=== PATIENT | female | born 1980 | race Caucasian/White ===

== ENCOUNTER 2018-09-16 14:19 | Emergency (ER) | payer MEDICAID ==
[~2018-09-16] VITALS: Ht 165.1 cm; Wt 77.9 kg
[2018-09-16 14:33] VITALS: BP 121/83; PULSE 102; RESP 18; Ht 165.1 cm; Wt 77.9 kg
--- NOTE | 2018-09-16 19:44 | ERD ---
ER Documentation Chief Complaint Chief Complaint fr clinic 6wks vag bleeding [id number], HPI History of Present Illness: 37-year-old female who denies a past medical history coming in today with complaint of vaginal bleeding that occurred approximately 30 minutes prior to arrival. Patient reports consisting c onsistency appears to be like when her menstrual cycle start, with a pinkish color. Patient is G5, P2. Past surgical history of a ovarian cyst removal. Associated symptoms include mild abdominal cramping. At home pharmacological/nonpharmacological treatment for symptoms: Denies Denies social concerns; Denies recent foreign travel ROS All systems reviewed and are negative except as per history of present illness. PMhx/Soc Hx Alcohol Use: No Hx Substance Use: No FmHx Family History: diabetes Physical Exam Vitals Vital Signs Date Temp Pulse Resp B/P (MAP) Pulse Ox O2 O2 Flow FiO2 Time Delivery Rate 09/16/18 98.2 102 18 121/83 98 14:33 (96) Physical Exam Const: No acute distress Head: Atraumatic Eyes: Normal Conjunctiva ENT: Normal External Ears, Nose and Mouth. Neck: Full range of motion. No meningismus. Resp: Clear to auscultation bilaterally Cardio: Regular rate and rhythm, no murmurs Abd: Soft, tenderness to palpation to right lower quadrant, suprapubic, left lower quadrant, non distended. Normal bowel sounds Skin: No petechiae or rashes Back: No midline or flank tenderness Ext: No cyanosis, or edema Neur: Awake and alert Psych: Normal Mood and Affect Result Diagram: 09/16/18 1602 Results 24 hrs Laboratory Tests Test 09/16/18 16:02 White Blood Count 10.4 10^3/ul Red Blood Count 4.33 10^6/ul Hemoglobin 13.2 g/dl Hematocrit 38.6 % Mean Corpuscular Volume 89.1 fl Mean Corpuscular Hemoglobin 30.5 pg Mean Corpuscular Hemoglobin Concent 34.2 g/dl Red Cell Distribution Width 12.9 % Platelet Count 327 10^3/UL Mean Platelet Volume 8.9 fl Immature Granulocytes % 0.200 % Neutrophils % 64.3 % Lymphocytes % 27.6 % Monocytes % 6.7 % Eosinophils % 1.0 % Basophils % 0.2 % Nucleated Red Blood Cells % 0.0 /100WBC Immature Granulocytes # 0.020 10^3/ul Neutrophils # 6.7 10^3/ul Lymphocytes # 2.9 10^3/ul Monocytes # 0.7 10^3/ul Eosinophils # 0.1 10^3/ul Basophils # 0.0 10^3/ul Nucleated Red Blood Cells # 0.0 10^3/ul Urine Color YELLOW Urine Clarity CLOUDY Urine pH 7.0 Urine Specific [place] 1.013 Urine Ketones NEGATIVE mg/dL Urine Nitrite NEGATIVE mg/dL Urine Bilirubin NEGATIVE mg/dL Urine Urobilinogen NEGATIVE mg/dL Urine Leukocyte Esterase NEGATIVE Yecenia/ul Urine Microscopic RBC 27 /HPF Urine Microscopic WBC 3 /HPF Urine Squamous Epithelial Cells MODERATE /HPF Urine Amorphous Crystals MANY /HPF Urine Bacteria FEW /HPF Urine Hemoglobin 3+ mg/dL Urine Glucose NEGATIVE mg/dL Urine Total Protein NEGATIVE mg/dl Beta HCG, Quantitative 44552.0 mIU/ml Procedures/MDM ED course includes a thorough examination and history. Medications: Imaging: OB transvaginal and abdominal ultrasound Labs: CBC, Rh, urinalysis, beta quantitative Low suspicion for life-threatening medical emergency. Low suspicion for acute abdominal emergency. Low suspicion for SLEEP LAB TECHNICIAN emergency that requires hospitalization or immediate surgical intervention. Otherwise healthy patient presenting with constellation of symptoms likely representing uncomplicated subchorionic hemorrhage secondary to vaginal bleeding during as characterized by history, physical exam findings, lab findings. CBC: no e/o of systemic infection or severe anemia. Beta quantitative 53K. Rh O+. Urinalysis negative for infection, 27 RBCs, 2+ hemoglobin. Ultrasound results showing: IMPRESSION: Single live intrauterine with an estimated gestational age of 7 weeks 0 days, based on ultrasound measurements. Estimated date of delivery is 05/05/2018. Small subchorionic hemorrhage. Possible 1.8 cm posterior intramural fibroid. RPTAT: [facility] Physician Deng Date Time Electronically viewed and signed by Physician Deng on 09/16/2018 16:41 Patient reassessment 1805: Patient hemodynamically stable. Labs and imaging results discussed. No respiratory distress, otherwise relatively well appearing and nontoxic. Disposition given. Patient educated on diagnoses, prescriptions, follow-up care, return precautions. Strict return precautions given for worsening condition; questions answered discharge. Patient verbalizes understanding of plan of care as well as discharge instructions. Disposition for discharge with followup in 2 days with PCP/clinic. Departure Diagnosis: Primary Impression: Subchorionic hemorrhage in first trimester Fetus number: single or unspecified fetus Qualified Codes: O41.8X10 - Other specified disorders of amniotic fluid and membranes, first trimester, n ot applicable or unspecified; O46.8X1 - Other antepartum hemorrhage, first trimester Additional Impression: Vaginal bleeding in patient at less than 20 weeks ges... Condition: Stable Patient Instructions: Bleeding During Early Referrals: COMM[facility] YOU HAVE RECEIVED A MEDICAL SCREENING EXAM AND THE RESULTS INDICATE THAT YOU DO NOT HAVE A CONDITION THAT REQUIRES URGENT TREATMENT IN THE EMERGENCY DEPARTMENT. FURTHER EVALUATION AND TREATMENT OF YOUR CONDITION CAN WAIT UNTIL YOU ARE SEEN IN YOUR DOCTORS OFFICE WITHIN THE NEXT 1-2 DAYS. IT IS YOUR RESPONSIBILITY TO MAKE AN APPOINTMENT FOR FOLOW-UP CARE. IF YOU HAVE A PRIMARY DOCTOR --you should call your primary doctor and schedule an appointment IF YOU DO NOT HAVE A PRIMARY DOCTOR YOU CAN CALL OUR PHYSICIAN REFERRAL HOTLINE AT IF YOU CAN NOT AFFORD TO SEE A PHYSICIAN YOU CAN CHOSE FROM THE FOLLOWING COM [facility] [address] [facility]. [facility] [address] [facility] [address] [facility] [address] [facility] [address] [facility]. [facility]. [address] [facility]. [facility] YOU HAVE RECEIVED A MEDICAL SCREENING EXAM AND THE RESULTS INDICATE THAT YOU DO NOT HAVE A CONDITION THAT REQUIRES URGENT TREATMENT IN THE EMERGENCY DEPARTMENT. FURTHER EVALUATION AND TREATMENT OF YOUR CONDITION CAN WAIT UNTIL YOU ARE SEEN IN YOUR DOCTORS OFFICE WITHIN THE NEXT 1-2 DAYS. IT IS YOUR RESPONSIBILITY TO MAKE AN APPOINTMENT FOR FOLOW-UP CARE. IF YOU HAVE A PRIMARY DOCTOR --you should call your primary doctor and schedule and appointment IF YOU DO NOT HAVE A PRIMARY DOCTOR YOU CAN CALL OUR PHYSICIAN REFERRAL HOTLINE AT . IF YOU CAN NOT AFFORD TO SEE A PHYSICIAN YOU CAN CHOSE FROM THE FOLLOWING [facility] INSTITUTIONS: [facility] [address] [place] [address] [facility] [address] [place] [address] [facility] [address] [place] [address] SLEEP LAB TECHNIC[place] [address] [facility] [address] [place] [address] OFFICE FAX , [facility] [address] [place], [place] [id number] DR. GARCESFORMERLY [facility] [address] [place] [address] DR BRADLEY, [facility] [address] [facility], [facility] 707, [facility] [address] [address] [facility] [address] [place] [address] [facility] [address] [place] [address] [address] [facility] [address] - DULCE PATIÑO [address] [facility]. [address], [facility] [address] [address] PICHARDO, FABIEN [address] [facility]. [address], [facility] [address] [address] [address] [place], [place] [id number] Additional Instructions: Thank you very much for allowing us to participate in your care. Your health and safety is our top priority at [facility]. It is important to read all discharge instructions and education provided in your discharge packet. Call your primary care doctor TOMORROW for an appointment during the next 2-4 days and bring all the information. If the symptoms get worse and your provider is unavailable, return to the Emergency Department immediately. AZRA LANDEROS NP Sep 16, 2018 19:44
== END 2018-09-16 18:08 | disposition home or self-care (01) ==
LOC: FTE 14:19
DX: O41.8X10 Other specified disorders of amniotic fluid and membranes, first trimester, not applicable or unspecified (principal); O46.8X1 Other antepartum hemorrhage, first trimester; R10.2 Pelvic and perineal pain; Z3A.01 Less than 8 weeks gestation of pregnancy
CPT/HCPCS: 76801; 76817; 81001; 84702; 85025; 86900; 86901; Z7502

== ENCOUNTER 2018-10-12 21:02 | Emergency (ER) | payer MEDICAID ==
[~2018-10-12] VITALS: Ht 160 cm; Wt 79.0 kg
[2018-10-12 21:06] VITALS: Ht 160 cm; Wt 79.0 kg
[2018-10-12] MEDS ORDERED: ACETAMINOPHEN 500 MG TAB PO STA (22:41)
[2018-10-12] MEDS ORDERED: SOD CHLORIDE 0.9% 1,000 ML IV STA (22:41)
[2018-10-13] MEDS ORDERED: ACET325T33 PO (00:22)
[2018-10-13] MEDS ORDERED: CEPH-443 PO (00:22)
--- NOTE | 2018-10-13 00:34 | ERD ---
ER Documentation Chief Complaint Chief Complaint DIZZINESS, 12 WEEKS PG HPI History of Present Illness: 37-year-old female who denies a past medical history coming in today with complaint of dizziness as well as pelvic pain. Patient reports being approximately 12 weeks . Patient with suprapubic pain. Denies dysuria or any other gastrointestinal or genitourinary symptoms. At home pharmacological/nonpharmacological treatment for symptoms: Denies Denies social concerns; Denies recent foreign travel ROS All systems reviewed and are negative except as per history of present illness. Medications Home Meds Active Scripts Meclizine Hcl* (Meclizine Hcl*) 25 Mg Tablet, 25 MG PO Q8H PRN for DIZZINESS, #30 TAB Prov:AZRA LANDEROS V SOCIAL SCIENTIST 10/13/18 Cephalexin* (Keflex*) 500 Mg Capsule, 500 MG PO TID for urine infection for 7 Days, CAP Prov:AZRA LANDEROS V SOCIAL SCIENTIST 10/13/18 Acetaminophen* (Tylenol*) 325 Mg Tablet, 2 TAB PO Q6 PRN for PAIN AND OR ELEVATED TEMP, #30 TAB Prov:AZRA LANDEROS V SOCIAL SCIENTIST 10/13/18 Allergies Allergies: Coded Allergies: No Known Allergy (Unverified , 10/12/18) PMhx/Soc Medical and Surgical Hx: pt denies Medical Hx History of Surgery: Yes (right ovary cyst) Anesthesia Reaction: No Hx Alcohol Use: No Hx Substance Use: No Hx Tobacco Use: No Smoking Status: Never smoker FmHx Family History: diabetes Physical Exam Vitals Vital Signs Date Temp Pulse Resp B/P (MAP) Pulse Ox O2 O2 Flow FiO2 Time Delivery Rate 10/12/18 99.2 109 18 127/86 98 21:06 (100) Physical Exam Const: No acute distress, afebrile Head: Atraumatic Eyes: Normal Conjunctiva ENT: Normal External Ears, Nose and Mouth. Neck: Full range of motion. No meningismus. Resp: Clear to auscultation bilaterally Cardio: Regular rate and rhythm, no murmurs Abd: Soft, suprapubic tenderness, non distended. No guarding, no masses, no rigidity. Palpable fundus. Skin: No petechiae or rashes Back: No midline or flank tenderness Ext: No cyanosis, or edema Neur: Awake and alert x3, speaking in clear sentences, no focal deficits or facial asymmetry Psych: Normal Mood and Affect Result Diagram: 10/12/18 9186 Results 24 hrs Laboratory Tests Test 10/12/18 22:52 White Blood Count 7.9 10^3/ul Red Blood Count 4.20 10^6/ul Hemoglobin 12.7 g/dl Hematocrit 37.6 % Mean Corpuscular Volume 89.5 fl Mean Corpuscular Hemoglobin 30.2 pg Mean Corpuscular Hemoglobin Concent 33.8 g/dl Red Cell Distribution Width 13.1 % Platelet Count 330 10^3/UL Mean Platelet Volume 8.8 fl Immature Granulocytes % 0.100 % Neutrophils % 62.6 % Lymphocytes % 28.7 % Monocytes % 7.2 % Eosinophils % 1.1 % Basophils % 0.3 % Nucleated Red Blood Cells % 0.0 /100WBC Immature Granulocytes # 0.010 10^3/ul Neutrophils # 4.9 10^3/ul Lymphocytes # 2.3 10^3/ul Monocytes # 0.6 10^3/ul Eosinophils # 0.1 10^3/ul Basophils # 0.0 10^3/ul Nucleated Red Blood Cells # 0.0 10^3/ul Urine Color YELLOW Urine Clarity TURBID Urine pH 7.0 Urine Specific [place] 1.018 Urine Ketones TRACE mg/dL Urine Nitrite NEGATIVE mg/dL Urine Bilirubin NEGATIVE mg/dL Urine Urobilinogen NEGATIVE mg/dL Urine Leukocyte Esterase NEGATIVE [place]/ul Urine Microscopic RBC 6 /HPF Urine Microscopic WBC 12 /HPF Urine Amorphous Crystals MODERATE /HPF Urine Bacteria FEW /HPF Urine Hemoglobin NEGATIVE mg/dL Urine Glucose 1+ mg/dL Urine Total Protein NEGATIVE mg/dl Beta HCG, Quantitative 19888.0 mIU/ml Current Medications Medications Dose Sig/Alexys Start Time Status Last (Trade) Ordered Route PRN Stop Time Admin Dose Reason Admin Sodium 1,000 ml @ Q1H STAT 10/12/18 DC 10/12/18 Chloride 1,000 mls/hr IV 22:41 10/12/18 22:54 23:40 1,000 mg ONCE STAT 10/12/18 DC 10/12/18 Acetaminophen PO 22:41 10/12/18 22:57 (Tylenol 22:42 Tab) Meclizine 25 mg ONCE ONCE 10/13/18 HCl PO 01:00 10/13/18 (Antivert) 01:01 Procedures/MDM ED COURSE: ED course includes a thorough examination and history. The patient was stable throughout ED course. I kept the patient and/or family informed of laboratory and diagnostic imaging results throughout the ED course. LABS: CBC: no e/o of systemic infection or severe anemia. Beta quantitative 69,452 Urinalysis positive for trace ketones, 12 WBCs, 6 RBCs, few bacteria MEDICATIONS GIVEN IN ER: Acetaminophen Patient tolerated medication well with no adverse reactions. Patient reported improvement in pain. DIAGNOSTIC IMAGING: Read by radiologist. IMPRESSION: Single live intrauterine with an estimated gestational age of 11 weeks and 3 days, based on ultrasound measurements. Moderate area of subchorionic hemorrhage. Close follow-up is recommended. .Sky Hoffman MD, MD Date Time Electronically viewed and signed by .Sky Hoffman MD, MD on 10/12/2018 23:41 PROCEDURES: None. MEDICAL DECISION MAKING: Low suspicion for life-threatening medical emergency. Low suspicion for acute abdominal emergency. Low suspicion for infectious process that requires IV or IM antibiotics. Low suspicion for OB emergency that requires immediate hospitalization. Otherwise healthy patient presenting with constellation of symptoms likely representing dizziness likely related to tachycardia, pelvic pain, subchorionic hemorrhage, urinary tract infection as characterized by history, physical exam findings, imaging findings, lab findings. Patient reassessment @ 0033: Dizziness decreased. Will order meclizine for dizziness. Pain decreased acetaminophen. Results discussed. Patient verbalized understanding of close follow-up due to her chronic hemorrhage. Patient hemodynamically stable. No respiratory distress, otherwise relatively well appearing and nontoxic. Disposition given. Patient educated on diagnoses, prescriptions, follow-up care, return precautions. Strict return precautions given for worsening condition; questions answered discharge. Patient verbalizes understanding of discharge instructions. PRESCRIPTIONS FOR HOME: Cephalexin, acetaminophen, meclizine DISPOSITION: DISCHARGE At this time, patient is stable for discharge and outpatient management. I have instructed the patient to follow-up with his/her primary care physician in 1-2 days. I have discussed with the patient the possibility of needing to see a specialist for further workup and imaging studies if symptoms persist. I have instructed the patient to promptly return to the ER for any new or worsening symptoms including increased pain, fever, nausea, vomiting, weakness or LOC. The patient and/or family expressed understanding of and agreement with this plan. All questions were answered. Home care instructions were provided. DISCLAIMER: Inadvertent spelling and grammatical errors are likely due to EHR/dictation software use and do not reflect on the overall quality of patient care. Also, please note that the electronic time recorded on this note does not necessarily reflect the actual time of the patient encounter. Departure Diagnosis: Primary Impression: Dizziness Additional Impressions: Sinus tachycardia by electrocardiography Pelvic pain in Subchorionic hemorrhage Condition: Stable Patient Instructions: Urinary Tract Infections in Women, Dizziness, Unk Cause, Pelvic Pain In : Unclear (2-3 Trimester) Referrals: [facility] YOU HAVE RECEIVED A MEDICAL SCREENING EXAM AND THE RESULTS INDICATE THAT YOU DO NOT HAVE A CONDITION THAT REQUIRES URGENT TREATMENT IN THE EMERGENCY DEPARTMENT. FURTHER EVALUATION AND TREATMENT OF YOUR CONDITION CAN WAIT UNTIL YOU ARE SEEN IN YOUR DOCTORS OFFICE WITHIN THE NEXT 1-2 DAYS. IT IS YOUR RESPONSIBILITY TO MAKE AN APPOINTMENT FOR FOLOW-UP CARE. IF YOU HAVE A PRIMARY DOCTOR --you should call your primary doctor and schedule an appointment IF YOU DO NOT HAVE A PRIMARY DOCTOR YOU CAN CALL OUR PHYSICIAN REFERRAL HOTLINE AT IF YOU CAN NOT AFFORD TO SEE A PHYSICIAN YOU CAN CHOSE FROM THE FOLLOWING [facility] [address] [facility]. [facility] [address] [facility]. [facility] [address] [facility]. [facility] [address] [facility] [address] [facility]. [facility]. [address] [facility]. [facility] YOU HAVE RECEIVED A MEDICAL SCREENING EXAM AND THE RESULTS INDICATE THAT YOU DO NOT HAVE A CONDITION THAT REQUIRES URGENT TREATMENT IN THE EMERGENCY DEPARTMENT. FURTHER EVALUATION AND TREATMENT OF YOUR CONDITION CAN WAIT UNTIL YOU ARE SEEN IN YOUR DOCTORS OFFICE WITHIN THE NEXT 1-2 DAYS. IT IS YOUR RESPONSIBILITY TO MAKE AN APPOINTMENT FOR FOLOW-UP CARE. IF YOU HAVE A PRIMARY DOCTOR --you should call your primary doctor and schedule and appointment IF YOU DO NOT HAVE A PRIMARY DOCTOR YOU CAN CALL OUR PHYSICIAN REFERRAL HOTLINE AT . IF YOU CAN NOT AFFORD TO SEE A PHYSICIAN YOU CAN CHOSE FROM THE FOLLOWING [facility] INSTITUTIONS: [facility] [address] [place] [address] [facility] [address] [place] [address] [facility] [address] [place] [address] Additional Instructions: Thank you very much for allowing us to participate in your care. Your health and safety is our top priority at [facility]. It is important to read all discharge instructions and education provided in your discharge packet. Call your primary care doctor TOMORROW for an appointment during the next 2-4 days and bring all the information and medications prescribed. Have prescriptions filled and follow precisely the directions on the label. -Cephalexin is an antibiotic; take this medication every day as listed on your prescription. You must complete the entire course of treatment that is listed on your prescription this is very important because it takes a certain number of days to kill the bacteria that is causing the infection. --Acetaminophen as a medication for pain and/or fever. Take this medication as needed for mild to moderate pain. This medication will not cause drowsiness. Acetaminophen is safe during . If the symptoms get worse and your provider is unavailable, return to the Emergency Department immediately. AZRA LANDEROS NP Oct 13, 2018 00:34
[2018-10-13] MEDS ORDERED: MECL-77 PO (00:41)
[2018-10-13] MEDS ORDERED: MECLIZINE 12.5 MG TAB PO ONE (01:00)
[2018-10-13 01:10] VITALS: BP 106/74; PULSE 80; RESP 20
== END 2018-10-13 01:31 | disposition home or self-care (01) ==
LOC: FTE 21:02
DX: O26.891 Other specified pregnancy related conditions, first trimester (principal); R00.0 Tachycardia, unspecified; R42 Dizziness and giddiness; O46.8X1 Other antepartum hemorrhage, first trimester; O41.8X10 Other specified disorders of amniotic fluid and membranes, first trimester, not applicable or unspecified; Z3A.11 11 weeks gestation of pregnancy
CPT/HCPCS: 36415; 76801; 81001; 84702; 85025; 86900; 86901; 93005; J7030; Z7502; Z7610